=== PATIENT | male | born 1990 | race American Indian/Alaskan Native ===

== ENCOUNTER 2019-03-23 12:33 | Emergency (ER) | payer SELFPAY ==
[2019-03-23 13:09] VITALS: BP 121/75
--- NOTE | 2019-03-23 13:20 | Emergency Department Report ---
ED General Adult HPI - General Chief complaint: Laceration/Recheck/Suture Stated complaint: RT ARM STITCHS REMOVAL Source: patient Mode of arrival: Ambulatory Limitations: No Limitations - History of Present Illness Initial comments: 28yo BM states that he received sutures 3 weeks ago for a cut on his right lower arm. He states that he has not had any complications such as soreness, redness or discharge since the sutures were placed. -: week(s) (3) Location: right, upper extremity Radiation: non-radiation Severity scale (0 -10): 0 Quality: aching Improves with: none Worsens with: none Associated Symptoms: denies other symptoms Treatments Prior to Arrival: other (sutures) - Related Data Allergies Allergy/AdvReac Type Severity Reaction Status Date / Time No Known Allergies Allergy Verified 03/23/19 13:09 ED Review of Systems ROS: Stated complaint: RT ARM STITCHS REMOVAL Other details as noted in HPI Constitutional: denies: chills, fever Eyes: denies: eye pain, eye discharge, vision change ENT: denies: ear pain, throat pain Respiratory: denies: cough, shortness of breath, wheezing Cardiovascular: denies: chest pain, palpitations Endocrine: no symptoms reported Gastrointestinal: denies: abdominal pain, nausea, diarrhea Genitourinary: denies: urgency, dysuria Musculoskeletal: denies: back pain, joint swelling, arthralgia Skin: as per HPI Neurological: denies: headache, weakness, paresthesias Psychiatric: denies: anxiety, depression Hematological/Lymphatic: denies: easy bleeding, easy bruising ED Past Medical Hx - Past Medical History Previous Medical History?: No - Surgical History Past Surgical History?: No - Social History Smoking Status: Never Smoker Substance Use Type: None ED Physical Exam - General Limitations: No Limitations General appearance: alert, in no apparent distress - Head Head exam: Present: atraumatic, normocephalic - Eye Eye exam: Present: normal appearance, PERRL, EOMI - ENT ENT exam: Present: mucous membranes moist - Neck Neck exam: Present: normal inspection - Respiratory Respiratory exam: Present: normal lung sounds bilaterally - Cardiovascular Cardiovascular Exam: Present: regular rate, normal rhythm. Absent: systolic murmur, diastolic murmur, rubs, gallop - GI/Abdominal GI/Abdominal exam: Present: soft, normal bowel sounds - Rectal Rectal exam: Present: deferred - Expanded Upper Extremity Exam Right Shoulder Exam: Present: normal inspection, full ROM Upper Arm exam: Present: normal inspection, full ROM Elbow exam: Present: normal inspection, full ROM Forearm Wrist exam: Present: normal inspection, full ROM, tenderness, other (Sutures present on R posterior forearm) Neurosensory exam: Present: 2-point discrimination Vascular: Present: vascular compromise - Back Exam Back exam: Present: normal inspection, full ROM - Neurological Exam Neurological exam: Present: alert, altered, oriented X3 - Psychiatric Psychiatric exam: Present: normal affect - Skin Skin exam: Present: warm, dry, intact, normal color ED Course Vital Signs 03/23/19 13:08 Temperature 97.8 F Pulse Rate 81 Respiratory 18 Rate Blood Pressure 121/75 [Right] O2 Sat by Pulse 98 Oximetry - Procedure Description Procedures done: Suture removal: Thre sutures removed from the mid- dorsal forearm. No d/c, erythema or redness observed. Cap refill and sensation WNL. Pt tolerated procedure well. ED Medical Decision Making - Medical Decision Making Pt was instructed to keep wound clean and f/u with PCP. He was also instructed to see ER as needed. Critical care attestation.: If time is entered above; I have spent that time in minutes in the direct care of this critically ill patient, excluding procedure time. ED Disposition Clinical Impression: Visit for suture removal Disposition: DC-01 TO HOME OR SELFCARE Is pt being admited?: No Does the pt Need Aspirin: No Condition: Stable Additional Instructions: Pt was instructed to keep wound clean and f/u with PCP. He was also instructed to see ER as needed. Time of Disposition: 13:56
== END 2019-03-23 13:56 | disposition home or self-care (01) ==
LOC: ED 12:33
DX: S51.811D Laceration without foreign body of right forearm, subsequent encounter (principal); Y92.89 Other specified places as the place of occurrence of the external cause